=== PATIENT | female | born 1980 | race Caucasian/White ===

== ENCOUNTER 2016-11-18 11:19 | Emergency (ER) | payer OTHER ==
[~2016-11-18] VITALS: Ht 167.6 cm; Wt 80.0 kg
[~2016-11-18 11:19] MED LIST: CITALOPRAM40 MG PO; TRAZODONE100 MG PO; XANAX1 MG PO
[2016-11-18] MEDS ORDERED: TRAMADOL HCL50 MG PO (11:42)
[2016-11-18] MEDS ORDERED: XANAX XR1 MG PO (11:46)
[2016-11-18 11:53] VITALS: BP 121/75
== END 2016-11-18 11:53 | disposition home or self-care (01) | DRG 951 ==
LOC: ED 11:19
DX: Z76.0 Encounter for issue of repeat prescription (principal); F32.9 Major depressive disorder, single episode, unspecified; F41.9 Anxiety disorder, unspecified; J45.909 Unspecified asthma, uncomplicated; F43.10 Post-traumatic stress disorder, unspecified; M79.7 Fibromyalgia